=== PATIENT | male | born 1990 | race African-American/Black ===

== ENCOUNTER 2020-11-30 12:40 | Emergency (ER) | payer OTHER ==
[~2020-11-30] VITALS: Ht 170.2 cm; Wt 104.3 kg
[2020-11-30] MEDS ORDERED: FLEXERIL PO (14:49)
[2020-11-30] MEDS ORDERED: IBU600 MG PO (14:49)
[2020-11-30] MEDS ORDERED: TRAMADOL 50 MG50 MG PO (14:59)
[2020-11-30 15:04] VITALS: BP 128/72
== END 2020-11-30 15:05 | disposition home or self-care (01) ==
LOC: M.ERS 12:40
DX: S16.1XXA Strain of muscle, fascia and tendon at neck level, initial encounter (principal); S39.012A Strain of muscle, fascia and tendon of lower back, initial encounter; S29.012A Strain of muscle and tendon of back wall of thorax, initial encounter; S09.8XXA Other specified injuries of head, initial encounter; V89.0XXA Person injured in unspecified motor-vehicle accident, nontraffic, initial encounter; Y93.89 Activity, other specified; Y92.89 Other specified places as the place of occurrence of the external cause; Y99.8 Other external cause status